=== PATIENT | male | born 1980 | race Caucasian/White ===

== ENCOUNTER 2023-03-03 13:04 | Emergency (ER) | payer OTHER ==
[2023-03-03 13:13] VITALS: BP 112/73; PULSE 72; RESP 18; TEMP 98; BMI 29.3
[2023-03-03 14:12] LABS: BASO % 0.6 % (0-2.0); EOS % 1.6 % (0-4.5); HEMATOCRIT 41.9 % (35.4-49); HEMOGLOBIN 15.2 GM/dL (11.7-16.9); LYMPH % 26.8 % (8-40); MCH 31.5 pg (25.7-33.7); MCHC 36.3 g/dl (32.0-35.9); MEAN CELL VOLUME 86.7 fl (80-96); MEAN PLT VOLUME 8.1 fl (7.5-11.1); MONO % 6.4 % (3.8-10.2); NEUT % 64.6 % (42.8-82.8); PLATELET COUNT 203 10^3/uL (134-434); RBC 4.83 M/mm3 (4.00-5.60); RDW 13.7 % (11.9-15.9); WHITE BLOOD COUNT 7.1 K/mm3 (4.0-10.0)
[2023-03-03 14:20] LABS: PH,URINE 5.5 (5.0-8.0); URINE APPEARANCE CLEAR; URINE BILIRUBIN NEGATIVE (NEGATIVE); URINE COLOR YELLOW; URINE GLUCOSE (UA) NEGATIVE (NEGATIVE); URINE KETONE NEGATIVE (NEGATIVE); URINE LEUK ESTERASE NEGATIVE (NEGATIVE); URINE NITRITE NEGATIVE (NEGATIVE); URINE PROTEIN NEGATIVE (NEGATIVE); URINE UROBILINOGEN 0.2 mg/dL (0.2-1.0)
[2023-03-03 14:46] LABS: BLOOD UREA NITROGEN 17.9 mg/dL (7-18); CALCIUM 9.7 mg/dL (8.5-10.1)
[2023-03-03 14:47] LABS: ALBUMIN 3.8 g/dl (3.4-5.0)
[2023-03-03 14:51] LABS: BILIRUBIN,TOTAL 0.3 mg/dL (0.2-1); TOT PROT 7.2 g/dl (6.4-8.2)
== END 2023-03-03 17:33 | disposition home or self-care (01) ==
LOC: JER 13:04
DX: N28.1 Cyst of kidney, acquired (principal); K46.9 Unspecified abdominal hernia without obstruction or gangrene; R10.30 Lower abdominal pain, unspecified
CPT/HCPCS: 36415; 74177-TC; 80053; 81003; 85025; 87086; 87491; 87591; 99285-25; Q9967